=== PATIENT | male | born 1965 | race Caucasian/White ===

== ENCOUNTER 2024-10-13 12:18 | Emergency (ER) | payer BC ==
[~2024-10-13] VITALS: Ht 180.3 cm; Wt 93.0 kg
[~2024-10-13 12:18] MED LIST: ULTRAM50 MG PO
[2024-10-13 12:26] VITALS: PULSE 75; RESP 18; TEMP 97.7; O2SAT 98
[2024-10-13] MEDS: KETOROLAC TROMETHAMINE 60 MG/2 ML VIAL IM ONE (12:58)
== END 2024-10-13 13:11 | disposition home or self-care (01) ==
LOC: ER 12:45
DX: M25.561 Pain in right knee (principal); G89.29 Other chronic pain; F17.210 Nicotine dependence, cigarettes, uncomplicated
CPT/HCPCS: 99282; J1885